=== PATIENT | male | born 1935 | race Two or more races ===

== ENCOUNTER → 2017-12-17 16:09 | Outpatient (CLI) | payer MEDICARE, OTHER, SELFPAY ==
--- NOTE | 2017-12-17 10:25 | TISS_PTH ---
PATIENT: JENNY SANTANA LOC: [facility] U#:[id number] AGE/SX: 89/M ROOM: RE12/17/[address]: Dr. Arden Umana MD : 1935 BED: DIS: SPEC #: [id number] RECD: 12/17/17 15:35 STATUS: ALF STEPHEN #: [id number] JOSE ANTONIO: 12/17/17 10:[address]: Arden Umana DEPT: SURGICAL PATHOLOGY RECD BY: Ismael Bach Tissues: Right eye Procedures: Surgery Specimen Level IV HEADER OPERATION: Pterygium removal, right eye PRE-OP DIAGNOSIS: Pterygium, right eye TISSUE SUBMITTED: Pterygium, right eye MICROSCOPIC DIAGNOSIS Pterygium, right eye, biopsy: Consistent with Pterygium. Focal mild chronic inflammation. GIULIANA:germain 12/19/17 MICROSCOPIC DESCRIPTION Slides are reviewed. GROSS DESCRIPTION Received in fixative is one container labeled with the patient's name and designated pterygium right eye. The specimen consists of a piece of congested soft tissue measuring 0.6 x 0.6 x 0.1 cm. The entire specimen is submitted in one cassette. Will bisect it at the time of embedding. GIULIANA:germain 12/17/17 TC:5 CPT: 14529
== END ==
PROVIDERS: Visit Provider Ophthalmology
DX: H11.001 Unspecified pterygium of right eye (principal)
CPT/HCPCS: 88305